=== PATIENT | female | born 1965 | race Caucasian/White ===

== ENCOUNTER 2025-02-28 11:15 | Outpatient (RCR) | payer OTHER, SELFPAY | END 2025-06-20 15:25 | disposition home or self-care (01) | PROVIDERS: PCP Family Medicine; Visit Provider Student in an Organized Health Care Education/Training Program | DX: M67.912 Unspecified disorder of synovium and tendon, left shoulder (principal); Z51.89 Encounter for other specified aftercare | CPT/HCPCS: 97110; 97162 ==